=== PATIENT | female | born 1945 | race Caucasian/White ===

== ENCOUNTER 2022-07-29 20:38 | Emergency (ER) | payer OTHER ==
[~2022-07-29] VITALS: Ht 152.4 cm; Wt 68.0 kg
[2022-07-29 21:06] VITALS: BP 123/70
--- NOTE | 2022-07-29 21:10 | NUR ---
TO LOBBY A/W BED AMBULATORY
[2022-07-30] MEDS ORDERED: DIPH25TA53 PO (01:23)
[2022-07-30] MEDS ORDERED: PRED20TA5 PO (01:23)
[2022-07-30] MEDS ORDERED: predniSONE 20 MG TAB PO ONE (01:25)
--- NOTE | 2022-07-30 01:40 | NUR ---
Patient discharged with v/s stable. Written and verbal after care instructions given and explained. Patient alert, oriented and verbalized understanding of instructions. Ambulatory with steady gait. All questions addressed prior to discharge. ID band removed. Patient advised to follow up with PMD. Rx of BENADRYL AND PREDNISONE given. Patient educated on indication of medication including possible reaction and side effects. Opportunity to ask questions provided and answered.
== END 2022-07-30 01:40 | disposition home or self-care (01) ==
LOC: MED 20:38
DX: R21 Rash and other nonspecific skin eruption (principal); L29.9 Pruritus, unspecified; I10 Essential (primary) hypertension; Z90.49 Acquired absence of other specified parts of digestive tract; Z79.899 Other long term (current) drug therapy; Z98.890 Other specified postprocedural states
CPT/HCPCS: 99283; J7512

== ENCOUNTER 2023-03-25 20:16 | Emergency (ER) | payer OTHER, MEDICAID ==
[~2023-03-25] VITALS: Ht 162.6 cm; Wt 68.0 kg
[~2023-03-25 20:16] MED LIST: DIPH25TA53 PO; PRED20TA5 PO
[2023-03-25 21:23] VITALS: BP 135/111; PULSE 94; RESP 16; TEMP 97.2; O2SAT 100
[2023-03-26 01:09] VITALS: TEMP 97.2
[2023-03-26] MEDS ORDERED: MORPHINE SULFATE 4 MG/ML SYR IVP ONE (01:10)
[2023-03-26] MEDS ORDERED: FAMOTIDINE 20 MG/2 ML VIAL IVP ONE (01:10)
[2023-03-26] MEDS ORDERED: ONDANSETRON 4 MG/2 ML VIAL IVP ONE (01:10)
[2023-03-26 01:24] LABS: BASOPHILS % (AUTO) 0.4 % (0.0-2.0); EOSINOPHILS % (AUTO) 0.3 % (0.0-4.0); HEMOGLOBIN 14.8 g/dL (12.0-16.0); LYMPHOCYTES # (AUTO) 1.2 K/uL (2.5-16.5); LYMPHOCYTES % (AUTO) 13.4 % (20.5-51.1); MEAN CORPUSCULAR HEMOGLOBIN 32 pg (27-31); MEAN CORPUSCULAR HGB CONC 35 g/dL (33-37); MEAN CORPUSCULAR VOLUME 91.8 fL (80-94); MONOCYTES # (AUTO) 0.6 K/uL (0.8-1.0); NEUTROPHILS # (AUTO) 7.1 K/uL (1.8-7.7); NEUTROPHILS % (AUTO) 78.9 % (42.2-75.2); PLATELET COUNT (AUTO) 295 K/uL (140-450); RED BLOOD CELL COUNT(AUTO) 4.69 MIL/uL (4.20-5.40); RED CELL DISTRIBUTION WIDTH 13.1 % (11.6-13.7); WHITE BLOOD COUNT (AUTO) 8.9 K/uL (4.8-10.8)
[2023-03-26 01:36] LABS: INR 1.06 (0.8-1.2); PARTIAL THROMBOPLASTIN TIME 26.1 secs (22-35.6); PROTHROMBIN TIME 11.1 secs (10.8-13.4)
[2023-03-26 01:41] LABS: APPEARANCE,URINE CLEAR (CLEAR); BILIRUBIN,URINE NEGATIVE (NEGATIVE); BLOOD, URINE TRACE-I (NEGATIVE); COLOR,URINE YELLOW (YELLOW); LEUKOCYTE ESTERASE ,URINE TRACE (NEGATIVE); NITRITE, URINE NEGATIVE (NEGATIVE); PH,URINE 7.5 (5.0-9.0); PROTEIN,URINE NEGATIVE (NEGATIVE); UGLUCOSE NEGATIVE (NEGATIVE); UROBILINOGEN,URINE 0.2 EU/dL (0.2 - 1)
[2023-03-26 01:42] LABS: ALANINE AMINOTRANSFERASE 30 U/L (12-78); ALBUMIN 3.9 g/dL (3.4-5.0); ALKALINE PHOSPHATASE 90 U/L (50-136); ANION GAP 12.7 (8-16); ASPARTATE AMINOTRANSFERASE 17 U/L (15-37); CARBON DIOXIDE 27.7 mmol/L (21-32); CHLORIDE 98 mmol/L (98-107); CREATININE 0.8 mg/dL (0.6-1.3); GLUCOSE 127 mg/dL (74-106); POTASSIUM 3.4 mmol/L (3.5-5.1); SODIUM SERUM 135 mmol/L (136-145); TOTAL BILIRUBIN 0.7 mg/dL (0.0-1.0); TOTAL PROTEIN, SERUM 7.2 g/dL (6.4-8.2); UREA NITROGEN, BLOOD 12 mg/dL (7-18)
[2023-03-26 01:43] LABS: LACTIC ACID 0.8 mmol/L (0.4-2.0)
[2023-03-26 01:57] LABS: BACTERIA,URINE FEW /HPF (None Seen); FINE GRANULAR CASTS,URINE 0-10 /LPF (None Seen); MUCUS,URINE 2+ /LPF (None Seen); RBC,URINE 0-5 /HPF (0-5); SQUAMOUS EPITHELIAL CELL,UR 0-3 (FEW) /LPF (0-3 (FEW)); TRICHOMONAS,URINE None Seen /HPF (None Seen); URINE AMORPHOUS PHOSPHATES 2+ /HPF (None Seen); WBC,URINE 0-5 /HPF (0-5); YEAST,URINE None Seen /HPF (None Seen)
[2023-03-26] MEDS ORDERED: SUCR1TAB35 PO (06:18)
[2023-03-26] MEDS ORDERED: ONDA-188 PO (06:18)
[2023-03-26] MEDS ORDERED: FAMO-90 PO (06:18)
[2023-03-26 06:45] VITALS: BP 142/95; PULSE 91; RESP 16; O2SAT 95
== END 2023-03-26 06:45 | disposition home or self-care (01) ==
LOC: MED 20:16
DX: K29.70 Gastritis, unspecified, without bleeding (principal); R11.0 Nausea; R63.0 Anorexia; I10 Essential (primary) hypertension; F17.200 Nicotine dependence, unspecified, uncomplicated; Z90.49 Acquired absence of other specified parts of digestive tract; Z79.899 Other long term (current) drug therapy; Z98.890 Other specified postprocedural states
CPT/HCPCS: 36415; 71045; 76705; 80053; 81001; 83605; 83690; 84484; 85025; 85610; 85730; 87040; 87086; 93005; 96374; 96375; 99285; J2270; J2405; J3490; Q0092

== ENCOUNTER 2024-02-16 17:08 | Inpatient (IN) | payer OTHER, MEDICAID ==
[~2024-02-16] VITALS: Ht 127.6 cm; Wt 66.8 kg
[~2024-02-16 17:08] MED LIST changes: +FAMO-90 PO; +ONDA-188 PO; +SUCR-3 PO
[2024-02-16 17:22] VITALS: BP 138/81; PULSE 109; RESP 18; TEMP 98.9; O2SAT 94
[2024-02-16 17:53] VITALS: O2SAT 94
[2024-02-16 18:29] LABS: BASOPHILS % (AUTO) 0.3 % (0.0-2.0); EOSINOPHILS % (AUTO) 0.2 % (0.0-4.0); HEMATOCRIT 37.5 % (36-48); HEMOGLOBIN 12.8 g/dL (12.0-16.0); LYMPHOCYTES # (AUTO) 0.9 K/uL (2.5-16.5); LYMPHOCYTES % (AUTO) 9.7 % (20.5-51.1); MEAN CORPUSCULAR HEMOGLOBIN 31 pg (27-31); MEAN CORPUSCULAR HGB CONC 34 g/dL (33-37); MONOCYTES % (AUTO) 11.2 % (1.7-9.3); NEUTROPHILS # (AUTO) 6.9 K/uL (1.8-7.7); NEUTROPHILS % (AUTO) 78.6 % (42.2-75.2); PLATELET COUNT (AUTO) 268 K/uL (140-450); RED BLOOD CELL COUNT(AUTO) 4.08 MIL/uL (4.20-5.40); RED CELL DISTRIBUTION WIDTH 13.2 % (11.6-13.7); WHITE BLOOD COUNT (AUTO) 8.8 K/uL (4.8-10.8)
[2024-02-16 18:41] LABS: ANION GAP 15.2 (8-16); CALCIUM 8.7 mg/dL (8.5-10.1); CARBON DIOXIDE 21.6 mmol/L (21-32); CHLORIDE 94 mmol/L (98-107); CREATININE 0.7 mg/dL (0.6-1.3); GLUCOSE 100 mg/dL (74-106); POTASSIUM 3.8 mmol/L (3.5-5.1); SODIUM SERUM 127 mmol/L (136-145); UREA NITROGEN, BLOOD 13 mg/dL (7-18)
[2024-02-16 19:10] LABS: BILIRUBIN,URINE NEGATIVE (NEGATIVE); BLOOD, URINE TRACE-I (NEGATIVE); COLOR,URINE YELLOW (YELLOW); LEUKOCYTE ESTERASE ,URINE NEGATIVE (NEGATIVE); NITRITE, URINE NEGATIVE (NEGATIVE); PH,URINE 7.5 (5.0-9.0); PROTEIN,URINE 1+ (NEGATIVE); UGLUCOSE NEGATIVE (NEGATIVE); UROBILINOGEN,URINE 0.2 EU/dL (0.2 - 1)
[2024-02-16 19:16] LABS: INR 1.02 (0.8-1.2); PARTIAL THROMBOPLASTIN TIME 31.9 secs (22-35.6); PROTHROMBIN TIME 10.7 secs (10.8-13.4)
[2024-02-16 19:19] LABS: ALANINE AMINOTRANSFERASE 31 U/L (12-78); ALKALINE PHOSPHATASE 115 U/L (50-136); ASPARTATE AMINOTRANSFERASE 26 U/L (15-37); BILIRUBIN,DIRECT 0.2 mg/dL (0.0-0.3); TOTAL BILIRUBIN 0.6 mg/dL (0.0-1.0); TOTAL PROTEIN, SERUM 6.7 g/dL (6.4-8.2)
[2024-02-16 19:21] LABS: APPEARANCE,URINE HAZY (CLEAR)
[2024-02-16 19:27] LABS: BACTERIA,URINE 1+ /HPF (None Seen); MUCUS,URINE None Seen /LPF (None Seen); RBC,URINE 0-5 /HPF (0-5); SQUAMOUS EPITHELIAL CELL,UR 0-3 (FEW) /LPF (0-3 (FEW)); WBC,URINE 0-5 /HPF (0-5)
[2024-02-16] MEDS: MORPHINE SULFATE 2 MG/ML SYR IVP ONE (19:37)
[2024-02-16 20:45] VITALS: O2SAT 96
[2024-02-16 21:45] LABS: FLU A ANTIGEN negative (NEGATIVE); FLU B ANTIGEN NEGATIVE (NEGATIVE)
[2024-02-16 23:47] VITALS: O2SAT 96
[2024-02-17] MEDS ORDERED: OMEP20EC11 PO (00:07)
[2024-02-17] MEDS ORDERED: LOSA-272 PO (00:07)
[2024-02-17] MEDS ORDERED: ATOR40TA40 PO (00:07)
[2024-02-17] MEDS: NACL 0.9% 500 ML IV ONE (01:50)
[2024-02-17 02:02] VITALS: O2SAT 97
[2024-02-17] MEDS ORDERED: NACL 0.9% 1,000 ML IV SCH (02:55)
[2024-02-17] MEDS ORDERED: ONDANSETRON 4 MG/2 ML VIAL IVP PRN (02:55)
[2024-02-17 03:29] LABS: MAGNESIUM 1.8 mg/dL (1.8-2.4); PHOSPHORUS 2.2 mg/dL (2.5-4.9)
[2024-02-17] MEDS ORDERED: cefTRIAXone 1,000 MG VIAL ONE (03:34)
[2024-02-17] MEDS ORDERED: AZITHROMYCIN 500 MG INJ VIAL IV ONE (05:13)
[2024-02-17] MEDS: AZITHROMYCIN 500 MG in DEXTROSE 5% 250 ML IV SCH (05:30)
[2024-02-17] MEDS ORDERED: ALBUTEROL 0.083% 2.5 MG/3 ML NEBU INH PRN (05:40)
[2024-02-17] MEDS ORDERED: ACETAMINOPHEN EXTRA STRENGTH 500 MG TAB ONE (05:48)
[2024-02-17] MEDS ORDERED: ACETAMINOPHEN EXTRA STRENGTH 500 MG TAB PO SCH (06:00)
[2024-02-17 06:53] VITALS: O2SAT 99
[2024-02-17] MEDS ORDERED: LOSARTAN 50 MG TAB PO SCH (09:00)
[2024-02-17] MEDS ORDERED: ATORVASTATIN 20 MG TAB ONE (09:09)
[2024-02-17] MEDS: PANTOPRAZOLE 40 MG TABEC PO SCH (09:13)
[2024-02-17] MEDS: ATORVASTATIN 20 MG TAB PO SCH (09:13)
[2024-02-17] MEDS: LOSARTAN 25 MG TAB PO SCH (10:21)
[2024-02-17] MEDS ORDERED: ALBUTEROL SULFATE/IPRATROPIU 3 ML SOL IH PRN (10:50)
[2024-02-17] MEDS ORDERED: NACL 0.9% 500 ML IV SCH (10:55)
[2024-02-17 11:28] LABS: BASOPHILS % (AUTO) 0.3 % (0.0-2.0); EOSINOPHILS % (AUTO) 0.2 % (0.0-4.0); HEMATOCRIT 39.7 % (36-48); HEMOGLOBIN 13.5 g/dL (12.0-16.0); LYMPHOCYTES # (AUTO) 0.8 K/uL (2.5-16.5); LYMPHOCYTES % (AUTO) 8.1 % (20.5-51.1); MEAN CORPUSCULAR HEMOGLOBIN 32 pg (27-31); MEAN CORPUSCULAR HGB CONC 34 g/dL (33-37); MEAN CORPUSCULAR VOLUME 92.2 fL (80-94); MONOCYTES # (AUTO) 1.2 K/uL (0.8-1.0); MONOCYTES % (AUTO) 12.2 % (1.7-9.3); NEUTROPHILS # (AUTO) 7.8 K/uL (1.8-7.7); NEUTROPHILS % (AUTO) 79.2 % (42.2-75.2); PLATELET COUNT (AUTO) 276 K/uL (140-450); RED CELL DISTRIBUTION WIDTH 13.3 % (11.6-13.7); WHITE BLOOD COUNT (AUTO) 9.9 K/uL (4.8-10.8)
[2024-02-17 19:20] VITALS: PULSE 105; RESP 18; O2SAT 95
[2024-02-17 19:56] VITALS: O2SAT 96
[2024-02-17 22:21] VITALS: O2SAT 96
[2024-02-18] VITALS (12 sets, daily range): BP systolic 102–118; BP diastolic 64–78; PULSE 66–95; RESP 16–20; TEMP 96.9–97.8; O2SAT 93–100
[2024-02-18 04:00] LABS: EOSINOPHILS # (AUTO) 0.1 K/uL (0-0.4); MONOCYTES # (AUTO) 1.2 K/uL (0.8-1.0)
[2024-02-18] MEDS ORDERED: cefTRIAXone 1,000 MG VIAL ONE (04:07)
[2024-02-18 04:12] LABS: BASOPHILS % (AUTO) 0.3 % (0.0-2.0); EOSINOPHILS % (AUTO) 1.2 % (0.0-4.0); HEMOGLOBIN 12.8 g/dL (12.0-16.0); LYMPHOCYTES # (AUTO) 1.2 K/uL (2.5-16.5); LYMPHOCYTES % (AUTO) 13.3 % (20.5-51.1); MEAN CORPUSCULAR HEMOGLOBIN 32 pg (27-31); MEAN CORPUSCULAR HGB CONC 35 g/dL (33-37); MEAN CORPUSCULAR VOLUME 91.2 fL (80-94); MONOCYTES % (AUTO) 12.3 % (1.7-9.3); NEUTROPHILS # (AUTO) 6.8 K/uL (1.8-7.7); NEUTROPHILS % (AUTO) 72.9 % (42.2-75.2); PLATELET COUNT (AUTO) 239 K/uL (140-450); RED BLOOD CELL COUNT(AUTO) 4.06 MIL/uL (4.20-5.40); RED CELL DISTRIBUTION WIDTH 13.1 % (11.6-13.7); WHITE BLOOD COUNT (AUTO) 9.4 K/uL (4.8-10.8)
[2024-02-18] MEDS ORDERED: AZITHROMYCIN 500 MG INJ VIAL IV ONE (04:36)
[2024-02-18 04:44] LABS: CREATININE 0.7 mg/dL (0.6-1.3)
[2024-02-18 04:51] LABS: MAGNESIUM 1.8 mg/dL (1.8-2.4); PHOSPHORUS 2.7 mg/dL (2.5-4.9)
[2024-02-18 04:57] LABS: ANION GAP 10.4 (8-16); CALCIUM 8.7 mg/dL (8.5-10.1); CARBON DIOXIDE 25.6 mmol/L (21-32); CHLORIDE 99 mmol/L (98-107); GLUCOSE 95 mg/dL (74-106); SODIUM SERUM 131 mmol/L (136-145); UREA NITROGEN, BLOOD 10 mg/dL (7-18)
[2024-02-18] MEDS: ACETAMINOPHEN EXTRA STRENGTH 500 MG TAB PO PRN (05:59)
[2024-02-18] MEDS: LOSARTAN 25 MG TAB PO SCH (08:14)
[2024-02-18] MEDS ORDERED: ALBUTEROL SULFATE/IPRATROPIU 3 ML SOL IH PRN (13:55)
[2024-02-19] VITALS (12 sets, daily range): BP systolic 111–144; BP diastolic 67–94; PULSE 65–90; RESP 17–20; TEMP 96.6–98.9; O2SAT 94–98
[2024-02-19 03:01] LABS: BASOPHILS % (AUTO) 0.5 % (0.0-2.0); EOSINOPHILS # (AUTO) 0.2 K/uL (0-0.4); EOSINOPHILS % (AUTO) 4.9 % (0.0-4.0); HEMATOCRIT 35.1 % (36-48); HEMOGLOBIN 12.2 g/dL (12.0-16.0); LYMPHOCYTES # (AUTO) 1.2 K/uL (2.5-16.5); LYMPHOCYTES % (AUTO) 28.8 % (20.5-51.1); MEAN CORPUSCULAR HEMOGLOBIN 32 pg (27-31); MEAN CORPUSCULAR HGB CONC 35 g/dL (33-37); MEAN CORPUSCULAR VOLUME 90.3 fL (80-94); MONOCYTES # (AUTO) 0.5 K/uL (0.8-1.0); MONOCYTES % (AUTO) 12.5 % (1.7-9.3); NEUTROPHILS # (AUTO) 2.2 K/uL (1.8-7.7); NEUTROPHILS % (AUTO) 53.3 % (42.2-75.2); PLATELET COUNT (AUTO) 303 K/uL (140-450); RED BLOOD CELL COUNT(AUTO) 3.88 MIL/uL (4.20-5.40); RED CELL DISTRIBUTION WIDTH 13.4 % (11.6-13.7); WHITE BLOOD COUNT (AUTO) 4.2 K/uL (4.8-10.8)
[2024-02-19 03:14] LABS: ANION GAP 9.5 (8-16); CALCIUM 8.8 mg/dL (8.5-10.1); CARBON DIOXIDE 25.4 mmol/L (21-32); CHLORIDE 98 mmol/L (98-107); CREATININE 0.8 mg/dL (0.6-1.3); GLUCOSE 98 mg/dL (74-106); POTASSIUM 3.9 mmol/L (3.5-5.1); SODIUM SERUM 129 mmol/L (136-145); UREA NITROGEN, BLOOD 15 mg/dL (7-18)
[2024-02-19] MEDS: NACL 0.9% 1,000 ML IV SCH (11:55)
[2024-02-20] VITALS (7 sets, daily range): BP systolic 122–137; BP diastolic 63–88; PULSE 71–91; RESP 18–20; TEMP 96.4–97.4; O2SAT 93–97
[2024-02-20 03:08] LABS: BASOPHILS % (AUTO) 0.4 % (0.0-2.0); EOSINOPHILS # (AUTO) 0.1 K/uL (0-0.4); HEMATOCRIT 36.1 % (36-48); HEMOGLOBIN 12.6 g/dL (12.0-16.0); LYMPHOCYTES # (AUTO) 1.3 K/uL (2.5-16.5); LYMPHOCYTES % (AUTO) 28.3 % (20.5-51.1); MEAN CORPUSCULAR HEMOGLOBIN 32 pg (27-31); MEAN CORPUSCULAR HGB CONC 35 g/dL (33-37); MEAN CORPUSCULAR VOLUME 90.3 fL (80-94); MONOCYTES # (AUTO) 0.5 K/uL (0.8-1.0); MONOCYTES % (AUTO) 9.9 % (1.7-9.3); NEUTROPHILS # (AUTO) 2.7 K/uL (1.8-7.7); NEUTROPHILS % (AUTO) 58.4 % (42.2-75.2); PLATELET COUNT (AUTO) 362 K/uL (140-450); RED CELL DISTRIBUTION WIDTH 13.2 % (11.6-13.7); WHITE BLOOD COUNT (AUTO) 4.7 K/uL (4.8-10.8)
[2024-02-20 03:16] LABS: ANION GAP 11.5 (8-16); CALCIUM 9.1 mg/dL (8.5-10.1); CARBON DIOXIDE 25.5 mmol/L (21-32); CHLORIDE 101 mmol/L (98-107); CREATININE 0.8 mg/dL (0.6-1.3); GLUCOSE 103 mg/dL (74-106); SODIUM SERUM 134 mmol/L (136-145); UREA NITROGEN, BLOOD 10 mg/dL (7-18)
== END 2024-02-20 15:50 | disposition home health service (06) | DRG 194 ==
LOC: MED 17:08 → MTU 02-17 03:02
PROVIDERS: ADMIT Student in an Organized Health Care Education/Training Program; ATTEND Student in an Organized Health Care Education/Training Program
DX: J15.9 Unspecified bacterial pneumonia (principal); E44.1 Mild protein-calorie malnutrition; E87.1 Hypo-osmolality and hyponatremia; Z68.41 Body mass index [BMI] 40.0-44.9, adult; I10 Essential (primary) hypertension; E11.9 Type 2 diabetes mellitus without complications; Z20.822 Contact with and (suspected) exposure to COVID-19; Z72.0 Tobacco use; Z79.899 Other long term (current) drug therapy
CPT/HCPCS: 36415; 71045; 71275; 80048; 80076; 81001; 83735; 83880; 84100; 84443; 84484; 85025; 85379; 85610; 85730; 87040; 87081; 93005; 96374; 97116; 97163-GP; 99285; J0456; J0696; J2270; J7060; Q9967